=== PATIENT | female | born 1950 | race Caucasian/White ===

== ENCOUNTER 2023-03-18 22:11 | Inpatient (IN) | payer OTHER, MEDICAID ==
[~2023-03-18] VITALS: Ht 144.8 cm; Wt 60.9 kg
[2023-03-19 01:40] LABS: BASOPHILS # (AUTO) 0.1 K/uL (0.0-0.2); BASOPHILS % (AUTO) 0.6 % (0.0-2.0); EOSINOPHILS # (AUTO) 1.3 K/uL (0.0-0.4); EOSINOPHILS % (AUTO) 11.6 % (0.0-4.0); HEMATOCRIT 33.7 % (36-48); HEMOGLOBIN 10.4 g/dL (12.0-16.0); LYMPHOCYTES # (AUTO) 2.8 K/uL (1.0-5.5); LYMPHOCYTES % (AUTO) 24.4 % (20.5-51.5); MEAN CORPUSCULAR HEMOGLOBIN 22 pg (27-31); MEAN CORPUSCULAR HGB CONC 31 % (32-36); MEAN CORPUSCULAR VOLUME 73 fL (79.0-98.0); MONOCYTES # (AUTO) 0.8 K/uL (0.0-1.0); MONOCYTES % (AUTO) 7.3 % (1.7-9.3); NEUTROPHILS # (AUTO) 6.3 K/uL (1.8-7.7); NEUTROPHILS % (AUTO) 56.1 % (40.0-70.0); PLATELET COUNT (AUTO) 174 K/uL (130-430); RED BLOOD CELL COUNT(AUTO) 4.64 MIL/uL (4.2-6.2); RED CELL DISTRIBUTION WIDTH 14.8 % (9.0-15.0); WHITE BLOOD COUNT (AUTO) 11.3 K/uL (4.8-10.8)
[2023-03-19 01:50] LABS: ANION GAP 9 (5-15); CALCIUM 8.6 mg/dL (8.4-11.0); CHLORIDE 104 mmol/L (98-107); GLUCOSE 152 mg/dL (74-106); UREA NITROGEN, BLOOD 42 mg/dL (8-21)
[2023-03-19 01:54] LABS: ALANINE AMINOTRANSFERASE 20 U/L (12-78); ALBUMIN 3.4 g/dL (3.4-4.8); ASPARTATE AMINOTRANSFERASE 16 U/L (10-37); TOTAL BILIRUBIN 0.3 mg/dL (0.0-1.0)
[2023-03-19 02:59] LABS: BILIRUBIN,URINE NEGATIVE (NEGATIVE); BLOOD, URINE NEGATIVE (NEGATIVE); CLARITY/URINE SL CLOUDY (CLEAR); COLOR,URINE YELLOW (YELLOW); GLUCOSE,URINE NEGATIVE (NEGATIVE); KETONES,URINE NEGATIVE (NEGATIVE); LEUKOCYTE ESTERASE ,URINE 2+ (NEGATIVE); NITRITE, URINE NEGATIVE (NEGATIVE); PROTEIN URINE NEGATIVE (NEGATIVE); UROBILINOGEN,URINE 0.2 (0.2-1.0)
[2023-03-19 03:21] LABS: BACTERIA,URINE FEW /HPF (None Seen); WBC,URINE 20-50 /HPF (0-3)
[2023-03-19] MEDS ORDERED: cefTRIAXone 1 GM IVPB PREMIX 50 ML IV ONE (03:30)
[2023-03-19] MEDS ORDERED: D5/0.45 NS 1,000 ML IV ONE (05:30)
[2023-03-19] MEDS ORDERED: ONDA-8 PO (06:21)
[2023-03-19] MEDS ORDERED: BISCOLAX PO (06:21)
[2023-03-19] MEDS ORDERED: CLOP75TA32 PO (06:21)
[2023-03-19] MEDS ORDERED: SITA100T11 PO (06:21)
[2023-03-19] MEDS ORDERED: GLIP10TA11 PO (06:21)
[2023-03-19] MEDS ORDERED: FURO-149 PO (06:21)
[2023-03-19] MEDS ORDERED: OLOP2.5D11 BOTH EYES (06:21)
[2023-03-19] MEDS ORDERED: ACET325T PO (06:21)
[2023-03-19] MEDS ORDERED: LIP10 PO (06:21)
[2023-03-19] MEDS ORDERED: ASA81 PO (06:21)
[2023-03-19] MEDS ORDERED: CARV3.1246 PO (06:21)
[2023-03-19] MEDS ORDERED: VALS80TA2 PO (06:21)
[2023-03-19] MEDS ORDERED: SSNOVOLOG SUBCUT (06:21)
[2023-03-19] MEDS ORDERED: DOCU-144 PO (06:21)
[2023-03-19] MEDS ORDERED: GABA-529 PO (06:21)
[2023-03-19] MEDS ORDERED: DEXTROSE 50% JECT 50 ML DISP.SYRIN IVP PRN (11:30)
[2023-03-19] MEDS ORDERED: LEVOFLOXACIN 250 MG/D5W 50 ML IV SCH (11:30)
[2023-03-19] MEDS ORDERED: ACETAMINOPHEN 325 MG TABLET PO PRN (11:30)
[2023-03-19 15:27] VITALS: BP_SYST 140; PULSE 89; RESP 18; TEMP 98.3; O2SAT 98
[2023-03-19] MEDS ORDERED: BISACODYL 10 MG/SUPPOSITORY RC PRN (16:00)
[2023-03-19] MEDS: GABAPENTIN 100 MG CAPSULE PO SCH (20:58)
[2023-03-19] MEDS: ATORVASTATIN 10 MG TABLET PO SCH (20:58)
[2023-03-19] MEDS: DOCUSATE SODIUM 100 MG CAPSULE PO SCH (20:58)
[2023-03-19] MEDS: CARVEDILOL 3.125 MG TABLET (COREG) PO SCH (20:59)
[2023-03-19 21:46] VITALS: BP_SYST 149; PULSE 97; RESP 18; TEMP 97
[2023-03-20] VITALS (7 sets, daily range): BP systolic 132–144; PULSE 81–103; RESP 16–18; TEMP 96.3–97.2; O2SAT 96–98
[2023-03-20] MEDS: INSULIN REGULAR, HUMAN 100 UNITS/ML, 3 ML VIAL (humuLIN R) SUBCUT PRN ×4 (05:57→21:55)
[2023-03-20 06:56] LABS: BASOPHILS % (AUTO) 0.2 % (0.0-2.0); EOSINOPHILS % (AUTO) 9.8 % (0.0-4.0); HEMATOCRIT 35.2 % (36-48); HEMOGLOBIN 10.8 g/dL (12.0-16.0); LYMPHOCYTES # (AUTO) 1.8 K/uL (1.0-5.5); LYMPHOCYTES % (AUTO) 16.7 % (20.5-51.5); MEAN CORPUSCULAR HEMOGLOBIN 23 pg (27-31); MEAN CORPUSCULAR HGB CONC 31 % (32-36); MEAN CORPUSCULAR VOLUME 73 fL (79.0-98.0); MONOCYTES # (AUTO) 0.7 K/uL (0.0-1.0); MONOCYTES % (AUTO) 6.9 % (1.7-9.3); NEUTROPHILS # (AUTO) 7.1 K/uL (1.8-7.7); NEUTROPHILS % (AUTO) 66.4 % (40.0-70.0); PLATELET COUNT (AUTO) 162 K/uL (130-430); RED BLOOD CELL COUNT(AUTO) 4.83 MIL/uL (4.2-6.2); RED CELL DISTRIBUTION WIDTH 14.6 % (9.0-15.0); WHITE BLOOD COUNT (AUTO) 10.6 K/uL (4.8-10.8)
[2023-03-20 07:15] LABS: ALANINE AMINOTRANSFERASE 17 U/L (12-78); ALBUMIN 3.3 g/dL (3.4-4.8); ANION GAP 8 (5-15); ASPARTATE AMINOTRANSFERASE 17 U/L (10-37); CALCIUM 8.5 mg/dL (8.4-11.0); CHLORIDE 103 mmol/L (98-107); CREATININE 1.65 mg/dL (0.55-1.30); GLUCOSE 224 mg/dL (74-106); TOTAL BILIRUBIN 0.4 mg/dL (0.0-1.0); UREA NITROGEN, BLOOD 29 mg/dL (8-21)
[2023-03-20] MEDS ORDERED: OLOPATADINE HCL EYE OP SCH (09:00)
[2023-03-20] MEDS: GABAPENTIN 100 MG CAPSULE PO SCH ×2 (09:11→21:46)
[2023-03-20] MEDS: DOCUSATE SODIUM 100 MG CAPSULE PO SCH ×2 (09:11→21:46)
[2023-03-20] MEDS: CARVEDILOL 3.125 MG TABLET (COREG) PO SCH ×2 (09:11→21:47)
[2023-03-20] MEDS: CLOPIDOGREL BISULFATE 75 MG TABLET PO SCH (09:11)
[2023-03-20] MEDS: ASPIRIN 81 MG TAB.CHEW PO SCH (09:12)
[2023-03-20] MEDS: LEVOFLOXACIN 250 MG/D5W 50 ML IV SCH (09:45)
[2023-03-20] MEDS ORDERED: CEPH250C PO (16:23)
[2023-03-20] MEDS ORDERED: POLYETHYLENE GLYCOL 3350, 17 GM/ POWD.PACK PO ONE (16:45)
[2023-03-20] MEDS: ATORVASTATIN 10 MG TABLET PO SCH (21:47)
[2023-03-21] VITALS: BP_SYST 135; PULSE 101; RESP 18; TEMP 96.8; O2SAT 97
[2023-03-21] MEDS: INSULIN REGULAR, HUMAN 100 UNITS/ML, 3 ML VIAL (humuLIN R) SUBCUT PRN ×2 (06:36→11:56)
[2023-03-21 07:05] VITALS: BP_SYST 129; PULSE 85; RESP 16; TEMP 96.2; O2SAT 97
[2023-03-21] MEDS: OLOPATADINE HCL EYE OP SCH (09:00)
[2023-03-21] MEDS ORDERED: POLYETHYLENE GLYCOL 3350, 17 GM/ POWD.PACK PO SCH (09:00)
[2023-03-21] MEDS: GABAPENTIN 100 MG CAPSULE PO SCH ×2 (09:49→21:47)
[2023-03-21] MEDS: CLOPIDOGREL BISULFATE 75 MG TABLET PO SCH (09:50)
[2023-03-21] MEDS: CARVEDILOL 3.125 MG TABLET (COREG) PO SCH ×2 (09:50→21:48)
[2023-03-21] MEDS: ASPIRIN 81 MG TAB.CHEW PO SCH (09:51)
[2023-03-21] MEDS: DOCUSATE SODIUM 100 MG CAPSULE PO SCH ×2 (09:51→21:00)
[2023-03-21] MEDS: LEVOFLOXACIN 250 MG/D5W 50 ML IV SCH (10:20)
[2023-03-21 11:35] VITALS: BP_SYST 130; PULSE 88; RESP 17; TEMP 97.6; O2SAT 97
[2023-03-21 17:30] VITALS: BP_SYST 124; PULSE 82; RESP 17; TEMP 98.4; O2SAT 98
[2023-03-21 19:00] VITALS: O2SAT 97
[2023-03-21 20:00] VITALS: BP_SYST 132; PULSE 92; RESP 18; TEMP 96.6; O2SAT 97
[2023-03-21] MEDS: ATORVASTATIN 10 MG TABLET PO SCH (21:47)
[2023-03-22 00:27] VITALS: BP_SYST 119; PULSE 90; RESP 20; TEMP 97; O2SAT 98
[2023-03-22] MEDS: INSULIN REGULAR, HUMAN 100 UNITS/ML, 3 ML VIAL (humuLIN R) SUBCUT PRN (05:59)
[2023-03-22 08:00] VITALS: BP_SYST 106; PULSE 90; RESP 18; TEMP 98.3; O2SAT 98
[2023-03-22] MEDS: CARVEDILOL 3.125 MG TABLET (COREG) PO SCH (08:54)
[2023-03-22] MEDS: DOCUSATE SODIUM 100 MG CAPSULE PO SCH (08:54)
[2023-03-22] MEDS: CLOPIDOGREL BISULFATE 75 MG TABLET PO SCH (08:54)
[2023-03-22] MEDS: GABAPENTIN 100 MG CAPSULE PO SCH (08:54)
[2023-03-22] MEDS: ASPIRIN 81 MG TAB.CHEW PO SCH (08:55)
[2023-03-22] MEDS: LEVOFLOXACIN 250 MG/D5W 50 ML IV SCH (08:55)
[2023-03-22] MEDS: OLOPATADINE HCL EYE OP SCH (08:55)
[2023-03-22 11:01] VITALS: BP_SYST 107; PULSE 90; RESP 18; TEMP 98.2; O2SAT 98
== END 2023-03-22 11:35 | DRG 640 ==
LOC: SED 22:11 → SMU 03-19 05:27
PROVIDERS: ADMIT Internal Medicine; ATTEND Internal Medicine
DX: E86.0 Dehydration (principal); N17.0 Acute kidney failure with tubular necrosis; N39.0 Urinary tract infection, site not specified; E44.1 Mild protein-calorie malnutrition; D63.8 Anemia in other chronic diseases classified elsewhere; I25.10 Atherosclerotic heart disease of native coronary artery without angina pectoris; E78.5 Hyperlipidemia, unspecified; I12.9 Hypertensive chronic kidney disease with stage 1 through stage 4 chronic kidney disease, or unspecified chronic kidney disease; E11.22 Type 2 diabetes mellitus with diabetic chronic kidney disease; N18.9 Chronic kidney disease, unspecified; Z95.1 Presence of aortocoronary bypass graft; Z79.82 Long term (current) use of aspirin; Z79.1 Long term (current) use of non-steroidal anti-inflammatories (NSAID); Z68.29 Body mass index [BMI] 29.0-29.9, adult
CPT/HCPCS: 36415; 71045; 80053; 81000; 83037; 83605; 85025; 87040; 87081; 87086; 93005; 96361; 96365; 96367; 97116-GP; 97530-GP; 99285; J0696; J1815; J1956